=== PATIENT | male | born 1965 | race Caucasian/White ===

== ENCOUNTER → 2021-06-14 | Outpatient (CLI) | payer SELFPAY ==
--- NOTE | 2021-06-17 18:25 | PE ---
EXAMINATION TYPE: PET CT fusion skull to thigh DATE OF EXAM: 06/16/2021 CLINICAL HISTORY: 56-year-old male R91.1, initial staging right-sided solitary pulmonary nodule. TECHNIQUE: Following the intravenous administration of 11.8 mCi of F-18 FDG, whole body images are performed from the skull base to the midthigh. Images are reviewed on the computer in the coronal, a xial, and sagittal planes. Reconstructed rotating images are created on independent workstation and reviewed on the computer. A localization and attenuation correction CT is performed in conjunction with the PET scan. Glucose level: 102 mg/dL Injection site: Right AC COMPARISON: Outside low-dose CT chest 06/06/2021. FINDINGS: PET: There is focal intense uptake localized to the anterior aspect of the tongue measuring 2.3 cm wide, m ax SUV 8.5. Otherwise, physiologic FDG uptake within the neck. There is an irregular, spiculated, thick-walled cavitary mass involving the posterior right upper lob e measuring 3.8 cm wide and 3.9 cm craniocaudal. Borderline moderate uptake, Max SUV 3.0. Adjacent 1.0 cm satellite nodule along the inferior peripheral margin, axial image 81 also within the posterior right upper lobe is suspicious. Otherwise, physiologic FDG uptake within the chest. Average liver SUV 1.9. 8 mm hypodensity anterior mid hepatic dome shows no discrete FDG uptake, likely a small cyst. Otherwise, physiologic FDG uptake within the abdomen and pelvis. ATTENUATION CORRECTION CT: Moderate mucosal thickening bilateral maxillary sinuses. The orotracheal column is clear. No cervical lymphadenopathy. Heart normal size with trace anterior pericardial fluid. Conventional arch vessel branching anatomy. No thoracic lymphadenopathy by CT size criteria. Advanced centrilobular emphysema. Cavitary mass post erior right upper lobe as mentioned above along with adjacent 1 cm satellite nodule. No consolidation . Dependent atelectasis especially posterior left base. No pleural effusion. Nonobstructive 3 mm left renal calculus. No dilated small bowel, free fluid, or free air. No mesenter ic or retroperitoneal lymphadenopathy seen. Moderate stool burden. No pericolonic inflammatory change . Moderate atherosclerotic calcifications infrarenal abdominal aorta and iliac arteries. Scattered prostatic calcifications. Prostate gland mildly enlarged at 4.2 cm wide. Prominent circumfe rential bladder wall thickening may in part be due to nondistention. No abnormal fluid collection see n in the pelvis. Bones: Bilateral L5 pars defects with grade 2 anterolisthesis at L5-S1 with associated severe dissect ion change. S-shaped scoliosis. Advanced degenerative disc disease throughout the lumbar spine. All c ervical spondylosis. IMPRESSION: 1. COPD with advanced emphysema. The irregular, 3.8 cm cavitary mass in the posterior right upper lob e shows borderline moderate hypermetabolism. In the absence of signs/symptoms of atypical fungal/myco bacterial infections, this is highly suspicious for a primary neoplasm. A suspicious 1 cm satellite n odule is also noted along the inferior peripheral margin also located in the posterior right upper lo be. 2. Intense hypermetabolism localizing to the anterior aspect of the tongue. Etiology is unclear. Dire ct visualization to exclude neoplasm within the oral cavity here. 3. Otherwise, no specific findings of metastatic disease. 4. Prominent circumferential bladder wall thickening may in part be due to nondistention. Chronic freddie dder wall hypertrophy and cystitis are other considerations. Incidental 3 mm nonobstructive left marilee l calculus. 5. Degenerative S-shaped scoliosis. Bilateral L5 pars defects with grade 2 anterolisthesis at L5-S1.
== END | disposition home or self-care (01) ==
LOC: RADPETMAIN 11:43
PROVIDERS: ATTEND Nurse Practitioner Family
DX: J43.9 Emphysema, unspecified (principal); R91.8 Other nonspecific abnormal finding of lung field; N32.89 Other specified disorders of bladder; N20.0 Calculus of kidney
CPT/HCPCS: 78815; A9552

== ENCOUNTER → 2021-10-07 | Outpatient (CLI) | payer MEDICARE, OTHER ==
--- NOTE | 2021-10-07 17:21 | CT ---
EXAMINATION TYPE: CT chest w con DATE OF EXAM: 10/07/2021 COMPARISON: PET/CT 06/14/2021 HISTORY: malignant neoplasm of lung CT DLP: 1347 mGycm, Automated exposure control for dose reduction was used. CONTRAST: Performed injected with 100 mL of Isovue 300. TECHNIQUE: Axial images were obtained at 5 mm thick sections. Reconstructed images are reviewed on [employer] computer in the coronal plane. FINDINGS: Portion of the thyroid visualized is normal. There is an irregular consolidation in the posterior lateral right upper lobe measuring 7 x 3 cm. Thi s is enlarged from comparison. Previous cavitations are not identified. More extensive infiltrate ext ends anterior to the lateral portion of the chest. An enlarged pretracheal lymph node is present measuring 1.3 cm. Series 3 image 32. Right hilar adenop athy is present measuring 1.4 cm. Series 3 image 35. The ascending aorta diameter at the level of the main pulmonary artery is 3.0 cm. The main pulmonary artery diameter at the bifurcation is 2.[address] sections are obtained through the upper abdomen. Abdomen is essentially unremarkable. IMPRESSIONS: 1. Large irregular mass at the patient's prior cavitary lesion suspicious for progression of neoplasm . 2. Enlarged mediastinal pretracheal lymph node, this is an interval change
== END | disposition home or self-care (01) ==
LOC: RADCTMAIN 13:37
PROVIDERS: ATTEND Radiology Radiation Oncology
DX: C34.90 Malignant neoplasm of unspecified part of unspecified bronchus or lung (principal)
CPT/HCPCS: 71260; Q9967

== ENCOUNTER → 2021-12-13 | Outpatient (CLI) | payer MEDICARE, OTHER ==
[2021-12-13 10:09] LABS: African American GFR (CKD) >90 (>60 ml/min/1.73 sqM); Blood Urea Nitrogen 20 mg/dL (9-20); Non-African American GFR(CKD) >90 (>60 ml/min/1.73 sqM)
--- NOTE | 2021-12-13 20:02 | CT ---
EXAMINATION TYPE: CT chest wo/w con CT DLP: 381.6 mGycm, Automated exposure control for dose reduction was used. DATE OF EXAM: 12/13/2021 11:28 AM COMPARISON: Chest radiograph from 11/26/2021 Multiple CTs of the chest with most recent on 10/07/2021 . There are medicine PET scan 06/14/2021 CLINICAL INDICATION:Male, 56 years old with history of C34.11 Malignant neoplasm of upper lobe, right . TECHNIQUE: Multiple axial images were obtained through the chest with and without IV contrast. A tota l of 100 cc of Isovue-300 was administered. FINDINGS: LUNGS/ PLEURA: Interval increase in size of anterior lesion with thick peripheral dodson in the right upper lung measuring 8.5 x 6.2 x 7.8 cm. Previously this was all consolidation measuring 6.2 x 3.0 cm . There is large severe centrilobular emphysema with bulla and blebs within the lung apices. AIRWAY: Patent and unremarkable. HEART: Size within normal limits. MEDIASTINUM: Right low paratracheal lymph node measures similarly at 12 mm in short axis. VASCULATURE: Aortic sinus measures up to 42 mm. Scattered atherosclerotic disease seen throughout the arterial vasculature. MUSCULOSKELETAL: No acute osseous abnormalities. There is dextroscoliosis of the lower thoracic spine . Multilevel degenerative disc disease changes are seen throughout the spine. SOFT TISSUES/LYMPH NODES: Unremarkable. LOWER NECK: No significant findings. UPPER ABDOMEN: Stable right hepatic lobe A millimeters cyst. There is a left nonobstructing renal radames culus measuring 3 mm. The low bilateral too small to characterize probable renal cysts. IMPRESSION: 1. Interval increase in size of right upper lobe lesion now with larger cavitation measuring up to 8. 5 cm with peripheral thick dodson. 2. Stable right low paratracheal lymph node measuring 12 mm in short axis. 3. Moderate to severe emphysema changes with apical bulla and blebs. 4. Enlarged Aortic sinus with dilation up to 42 mm. 5. Nonobstructing left renal 3 mm calculus.
== END | disposition home or self-care (01) ==
LOC: RADCTMAIN 09:22
PROVIDERS: ATTEND Radiology Radiation Oncology
DX: C34.11 Malignant neoplasm of upper lobe, right bronchus or lung (principal); J44.9 Chronic obstructive pulmonary disease, unspecified
CPT/HCPCS: 82565; 84520; 71270; 36415; Q9967

== ENCOUNTER → 2022-01-17 | Outpatient (CLI) | payer MEDICARE, OTHER ==
--- NOTE | 2022-01-21 13:50 | PE ---
Nuclear medicine PET/CT HISTORY: C 34.11, lung cancer on the right, subsequent Patient received 10.2 mCi F-18 FDG intravenously and delayed scanning was performed from the skull ba se to the mid thighs. A localization and attenuation correction CT scan was performed. Correlation to prior nuclear medicine PET/CT 06/14/2021, CT chest 12/13/2021 Average mediastinal background activity 1.4 SUV, liver SUV 2 Chest and neck: The abnormal soft tissue in the right upper lobe is again noted which has increased i n size as compared to prior PET/CT, there is associated hypermetabolic uptake, SUV is 1.3. There is n o mediastinal, axillary, or hilar adenopathy, no cervical or supraclavicular adenopathy. Inflammatory changes present bilateral maxillary sinuses, uptake along the tongue is possibly physiologic. Extens mir emphysematous changes are again noted within the lungs. Abnormal attenuation at the left lung bas e developed in the interval, there are patchy areas of increased density not seen on priors, no pleur al or pericardial effusion or additional hypermetabolic uptake. ABDOMEN: There is no adrenal mass or liver mass. No suspicious uptake. Atheromatous changes present w ithin the aorta. Prostate calcifications are extensive. Degenerative disc changes, spondylolysis and spondylolisthesis suspected in the lower lumbar spine, t here is associated facet arthropathy, no suspicious uptake. IMPRESSION: Findings consistent with patient's history of bronchogenic carcinoma, additional findings above
== END | disposition home or self-care (01) ==
LOC: RADPETMAIN 10:30
PROVIDERS: ATTEND Radiology Radiation Oncology
DX: C34.11 Malignant neoplasm of upper lobe, right bronchus or lung (principal); J43.9 Emphysema, unspecified
CPT/HCPCS: 78815; A9552

== ENCOUNTER 2022-02-10 09:09 | Day surgery (SDC) | payer MEDICARE, OTHER ==
[~2022-02-10 09:09] MED LIST: ALPRAZolam 0.5 MG TAB PO PRN; HYDROmorphone 0.5 MG/0.5 ML SYRINGE IVP PRN
[2022-02-10 09:59] LABS: Mean Platelet Volume 6.7; Platelet Count 608 k/uL (150-450)
[2022-02-10 10:08] VITALS: TEMP 97.9
[2022-02-10 10:13] LABS: INR 0.9 (<1.2); Prothrombin Time 9.8 sec (9.0-12.0)
[2022-02-10 10:14] LABS: Partial Thromboplastin Time 26.5 sec (22.0-30.0)
--- NOTE | 2022-02-10 11:11 | CT ---
EXAMINATION TYPE: CT biopsy lung RT DATE OF EXAM: 02/10/2022 COMPARISON: 01/17/2022 HISTORY: Post right lung biopsy CT DLP: 838 mGycm The procedure is discussed with the patient, the risks, complications, benefits and alternatives, wer e discussed and any questions were answered. Informed consent was obtained. The patient is placed p magdalena on the CT table, prepped and draped in the usual sterile fashion. Utilizing a 18-gauge core biopsy needle access into the right upper lobe mass was achieved with 2 pas ses performed. Pathology pending. All elements of maximal barrier and sterile technique were utilized. The patient remained stable thr oughout the procedure with no immediate postprocedural complication. IMPRESSION: 1. Successful CT guided core biopsy of a right upper lobe lung mass
--- NOTE | 2022-02-10 11:28 | XR ---
EXAMINATION TYPE: XR chest 1V portable DATE OF EXAM: 02/10/2022 Comparison: 12/24/2021 Clinical History: 48 year-old male post right upper lung mass biopsy Findings: The heart is normal size. Aorta and pulmonary vasculature within normal limits. Dextroconvexed scolio sis. Hyperinflation. Cavitary mass right apex redemonstrated. No appreciable pneumothorax. No new con solidation or pleural effusion. Impression: COPD with known cavitary right apical mass. No appreciable pneumothorax.
[2022-02-10 12:30] VITALS: RESP 16
[2022-02-10 14:00] VITALS: BP 115/78; PULSE 90
--- NOTE | 2022-02-10 14:20 | XR ---
EXAMINATION TYPE: XR chest 1V portable DATE OF EXAM: 02/10/2022 Comparison: Earlier today Clinical History: 56-year-old male post right upper lung mass biopsy, second chest x-ray Findings: Heart normal size. Aorta and pulmonary vasculature within normal limits. Some increased hazy density at the right lower lung probably atelectasis. Hyperinflation. Cavitary mass at the right apex redemon strated. No appreciable pneumothorax. No pleural effusion. Impression: Known right apical cavitary mass. No appreciable pneumothorax.
== END 2022-02-10 14:07 | disposition home or self-care (01) ==
LOC: RADPROMAIN 09:09
PROVIDERS: ATTEND Radiology Radiation Oncology
DX: J85.0 Gangrene and necrosis of lung (principal); J44.9 Chronic obstructive pulmonary disease, unspecified
CPT/HCPCS: 32408; 36415; 71045; 77012; 85049; 85610; 85730; 88305

== ENCOUNTER → 2022-03-17 | Outpatient (CLI) | payer MEDICARE, OTHER ==
[2022-03-17 12:57] LABS: African American GFR (CKD) >90 (>60 ml/min/1.73 sqM); Blood Urea Nitrogen 13 mg/dL (9-20); Non-African American GFR(CKD) >90 (>60 ml/min/1.73 sqM)
--- NOTE | 2022-03-17 14:08 | CT ---
EXAMINATION TYPE: CT chest wo/w con DATE OF EXAM: 03/17/2022 COMPARISON: PET/CT 01/17/[address] chest 12/13/2021 HISTORY: Malignant neoplasm of upper lobe. CT DLP: 322.4 mGycm Automated exposure control for dose reduction was used. CONTRAST: CT scan of the chest is performed without and with IV Contrast, patient injected with 100 mL of Isovu e M300. FINDINGS: LUNGS: Soft tissue mass with cavitation right upper lobe appears to be essentially unchanged. Mass is difficult to measure however estimated measurement is 10.1 x 3.4 x 2.4 cm. The remainder of the lung s are clear and free of additional mass or nodule. Moderate emphysematous change noted. No pleural ef fusion is seen. No evidence for hilar or mediastinal adenopathy at this time. MEDIASTINUM: There are no greater than 1 cm hilar or mediastinal lymph nodes. No pericardial effusi on is seen. Thoracic aorta is of normal caliber. The heart is not enlarged. UPPER ABDOMEN: No significant abnormality appreciated. OTHER: No additional significant abnormality is seen. IMPRESSION: Stable cavitary right upper lobe soft tissue mass compatible with bronchogenic carcinoma.
== END | disposition home or self-care (01) ==
LOC: RADCTMAIN 12:08
PROVIDERS: ATTEND Radiology Radiation Oncology
DX: C34.11 Malignant neoplasm of upper lobe, right bronchus or lung (principal)
CPT/HCPCS: 82565; 84520; 71270; 36415; Q9967

== ENCOUNTER → 2022-12-08 | Outpatient (CLI) | payer MEDICARE, OTHER ==
--- NOTE | 2022-12-08 17:14 | CT ---
EXAMINATION TYPE: CT chest w con DATE OF EXAM: 12/08/2022 COMPARISON: 07/17/2022 HISTORY: Follow up for right upper lobe lung cancer. CT DLP: 186.9 mGycm, Automated exposure control for dose reduction was used. CONTRAST: Performed injected with 70ml mL of Isovue 300. TECHNIQUE: Axial images were obtained at 5 mm thick sections. Reconstructed images are reviewed on [employer] computer in the coronal plane. FINDINGS: Portion of the thyroid visualized is normal. Extensive advanced emphysematous changes are present. There is a 1.6 x 0.5 cm density within the post erior right apex. This is new from comparison. There is persistent thickening cavitation in the posterior right upper lung field. There are multiple small irregular new densities within the right anterior lung field averaging approximately 4 mm each . The largest area along the anterior right lung margin measures 1.0 cm. Series 4 image 38. There is a 1.3 cm pretracheal lymph node present. Right hilar adenopathy is likely present measuring 1.2 cm. Some soft tissue thickening along the superior mediastinal border measures 1.4 cm. The ascending aorta diameter at the level of the main pulmonary artery is 2.7 cm. The main pulmonary artery diameter at the bifurcation is 3.[address] sections are obtained through the upper abdomen. Abdomen is essentially unremarkable. PET CT could further evaluate these findings. IMPRESSIONS: 1. Large relatively stable appearing cavitary lesion posterior right apex. 2. Multiple new small heterogenous densities right mid lung suspicious for metastatic disease. 3. Enlarged pretracheal lymphadenopathy which appears increased in size from prior exam suspicious fo r metastatic disease.
== END | disposition home or self-care (01) ==
LOC: RADCTMAIN 11:49
PROVIDERS: ATTEND Radiology Radiation Oncology
DX: C34.11 Malignant neoplasm of upper lobe, right bronchus or lung (principal); J98.4 Other disorders of lung; J44.9 Chronic obstructive pulmonary disease, unspecified; R59.0 Localized enlarged lymph nodes
CPT/HCPCS: 71260; Q9967

== ENCOUNTER → 2023-03-30 | Outpatient (CLI) | payer MEDICARE, OTHER ==
[2023-03-30 20:50] LABS: ALT 24 U/L (10-49); AST 22 U/L (14-35); African American GFR (CKD) 123.7 (60.0-200.0); Albumin 4.1 g/dL (3.8-4.9); Albumin/Globulin Ratio 1.35 (1.60-3.17); Alkaline Phosphatase 123 U/L (41-126); Blood Urea Nitrogen 14.3 mg/dL (9.0-27.0); Calcium 9.5 mg/dL (8.7-10.3); Carbon Dioxide 26.8 mmol/L (20.0-27.5); Chloride 104 mmol/L (96-109); Glucose 91 mg/dL (70-110); Non-African American GFR(CKD) 106.7 (60.0-200.0); Potassium 4.6 mmol/L (3.5-5.5); Sodium 139 mmol/L (135-145); Total Bilirubin <0.15 mg/dL (0.30-1.20); Total Protein 7.1 g/dL (6.2-8.2)
== END | disposition home or self-care (01) ==
LOC: LABWHC1 12:05
PROVIDERS: ATTEND Internal Medicine Infectious Disease
DX: A31.2 Disseminated mycobacterium avium-intracellulare complex (DMAC) (principal)
CPT/HCPCS: 36415; 80053

== ENCOUNTER → 2023-04-15 | Outpatient (CLI) | payer MEDICARE, OTHER ==
[2023-04-15 16:00] LABS: African American GFR (CKD) 132.1 (60.0-200.0); Albumin 3.6 g/dL (3.8-4.9); Albumin/Globulin Ratio 1.03 (1.60-3.17); Anion Gap 13.7 mmol/L (10.00-18.00); BUN/Creat Ratio 22.87 Ratio (12.00-20.00); Blood Urea Nitrogen 12.6 mg/dL (9.0-27.0); Calcium 9.1 mg/dL (8.7-10.3); Carbon Dioxide 23.9 mmol/L (20.0-27.5); Globulin 3.5 g/dL (1.6-3.3); Potassium 4.8 mmol/L (3.5-5.5); Total Bilirubin 0.2 mg/dL (0.30-1.20)
== END | disposition home or self-care (01) ==
LOC: LABWHC1 11:50
PROVIDERS: ATTEND Internal Medicine Infectious Disease
DX: A31.2 Disseminated mycobacterium avium-intracellulare complex (DMAC) (principal)
CPT/HCPCS: 36415; 80053; 85652; 87116; 87206

== ENCOUNTER → 2024-02-26 | Outpatient (CLI) | payer MEDICARE, OTHER ==
[2024-02-26 12:43] LABS: African American GFR (CKD) >90 (>60 ml/min/1.73 sqM); Blood Urea Nitrogen 15 mg/dL (9-20); Non-African American GFR(CKD) >90 (>60 ml/min/1.73 sqM)
--- NOTE | 2024-02-26 15:41 | CT ---
EXAMINATION TYPE: CT chest w con DATE OF EXAM: 02/26/2024 COMPARISON: 12/08/2022, 01/23/2023 HISTORY: pneumonia CT DLP: 448 mGycm, Automated exposure control for dose reduction was used. CONTRAST: Performed injected with 100 mL of Isovue 300. TECHNIQUE: Axial images were obtained at 5 mm thick sections. Reconstructed images are reviewed on [employer] computer in the coronal plane. FINDINGS: Portion of the thyroid visualized is normal. Advanced emphysematous changes are within the lung apices greater on the right. There is a area of thickening along the posterior medial right upper lung field, present previously. This appears smaller than comparison. Previous nodules not identified on the current examination. No enlarged mediastinal or hilar adenopathy is evident. Previous enlarged lymphadenopathy is resolv ed The ascending aorta diameter at the level of the main pulmonary artery is 2.9 cm. The main pulmon sheng artery diameter at the bifurcation is 2.[address] sections are obtained through the upper abdomen. Small hepatic cysts on the anterior right upper lobe of the liver. Small cortical renal cysts posterior lateral right upper pole kidney IMPRESSION: 1. Resolving findings from prior examination. 2. No suspicious new findings to suggest new metastatic disease. 3. Continued short-term follow-up recommended. 4. Advanced emphysematous changes
== END | disposition home or self-care (01) ==
LOC: RADCTMAIN 12:02
PROVIDERS: ATTEND Internal Medicine Infectious Disease
DX: J43.9 Emphysema, unspecified (principal); J18.9 Pneumonia, unspecified organism
CPT/HCPCS: 82565; 84520; 71260; 36415; Q9967

== ENCOUNTER 2025-01-01 05:38 | Observation (INO) | payer MEDICARE, OTHER ==
[2025-01-01] MEDS ORDERED: NALOXONE 0.4 MG/ML 1 ML VIAL IVP PRN (06:37)
[2025-01-01] MEDS ORDERED: ACETAMINOPHEN TAB 325 MG TAB PO PRN (06:37)
--- NOTE | 2025-01-01 06:37 | ED ---
General Adult HPI - General Chief complaint: Shortness of Breath Stated complaint: COPD Time Seen by Provider: 01/01/25 05:57 Source: patient, EMS, RN notes reviewed Mode of arrival: EMS Limitations: no limitations - History of Present Illness Initial comments: 59-year-old male presents emergency department from [facility] as a transfer COPD exacerbation. Patient states he started getting sick on he states symptoms are progressively worsening. Patient states he had pneumonia last year and was admitted for several days. Patient states he checked prior lung cancer they are concerned about reoccurrence. Patient states that he does see Dr. Sylvester. Patient reported some fever chills body aches. Denies any abdominal pain no lower extremity swelling. States he was given breathing treatments, steroids he states he was doing treatments every 2 hours at home. - Related Data Home Medications Medication Instructions Recorded Confirmed Albuterol Sulfate [Proair Hfa] 1 - 2 puff INHALATION Q6HR PRN 01/31/22 01/23/23 Aspirin [Adult Low Dose Aspirin EC] 81 mg PO DAILY 01/31/22 01/23/23 Fluticasone Propion/Salmeterol 2 puff INHALATION BID 01/31/22 01/23/23 [Advair Hfa 115-21 Mcg Inhaler] Ipratropium-Albuterol Nebulize 3 ml INHALATION Q6HR 01/31/22 01/23/23 [Duoneb 0.5 mg-3 mg/3 ml Soln] Ipratropium/Albuter 20-100Mcg 1 puff INHALATION Q4-6H 01/31/22 01/23/23 [Combivent Respimat 20-100Mcg Inhaler] predniSONE 5 mg PO DAILY 01/31/22 01/23/23 Allergies Allergy/AdvReac Type Severity Reaction Status Date / Time No Known Allergies Allergy Verified 01/23/23 11:53 Review of Systems ROS Statement: Those systems with pertinent positive or pertinent negative responses have been documented in the HPI. ROS Other: All systems not noted in ROS Statement are negative. Past Medical History Past Medical History: Cancer, COPD Additional Past Medical History / Comment(s): right upper lobe lung mass. end stage COPD History of Any Multi-Drug Resistant Organisms: None Reported Past Surgical History: Orthopedic Surgery, Tonsillectomy Additional Past Surgical History / Comment(s): prolasped colon repair Past Anesthesia/Blood Transfusion Reactions: No Reported Reaction Past Psychological History: Anxiety Smoking Status: Current some day smoker Past Alcohol Use History: Occasional Past Drug Use History: Marijuana - Past Family History Father Family Medical History: Cancer Additional Family Medical History / Comment(s): lung cancer General Exam Limitations: no limitations General appearance: alert, in no apparent distress Head exam: Present: atraumatic, normocephalic, normal inspection Eye exam: Present: normal appearance, PERRL, EOMI. Absent: scleral icterus, conjunctival injection, periorbital swelling ENT exam: Present: normal exam, normal oropharynx, mucous membranes moist Neck exam: Present: normal inspection, full ROM. Absent: tenderness, men ingismus, lymphadenopathy Respiratory exam: Present: wheezes. Absent: respiratory distress, rales, rhonchi, stridor Cardiovascular Exam: Present: normal rhythm, tachycardia, normal heart sounds. Absent: systolic murmur, diastolic murmur, rubs, gallop, clicks GI/Abdominal exam: Present: soft, normal bowel sounds. Absent: distended, tenderness, guarding, rebound, rigid Course Vital Signs 01/01/25 05:42 Temperature 98.3 F Pulse Rate 101 H Respiratory 21 Rate Blood Pressure 121/82 O2 Sat by Pulse 95 Oximetry EKG Findings - EKG Comments: EKG Findings:: EKG performed at 5: 47 sinus rhythm rate 93 CO 144, QRS 105 QT/QTc 359/409 - EKG Results: EKG: interpreted by MARIO Medical Decision Making - Medical Decision Making Was pt. sent in by a medical professional or institution (, PA, CONTRACT SHELTERED WORKSHOP SUPERVISOR, urgent care, hospital, or [place] health care facility...) When possible be specific @ -[facility] Did you speak to anyone other than the patient for history (EMS, parent, family, police, friend...)? What history was obtained from this source @ -No Did you review nursing and triage notes (agree or disagree)? Why? @ -I reviewed and agree with nursing and triage notes Were old charts reviewed (outside hosp., previous admission, EMS record, old EKG, old radiological studies, urgent care reports/EKG's, [place] health care facility records)? Report findings @Reviewed all [facility] records Differential Diagnosis (chest pain, altered mental status, abdominal pain women, abdominal pain men, vaginal bleeding, weakness, fever, dyspnea, syncope, headache, dizziness, GI bleed, back pain, seizure, CVA, palpatations, mental health, musculoskeletal)? @ -Differential Dyspnea: Coronary syndrome, arrhythmia, tamponade, asthma, COPD, pulmonary embolism, pneumonia, pneumothorax, pulmonary effusion, anaphylaxis, diabetic ketoacidosis, flailed chest, pulmonary contusion, diaphragmatic rupture, anemia, neuromuscular, this is not meant to be an all-inclusive list. EKG interpreted by me (3pts min.). @ -As above X-rays interpreted by me (1pt min.). @ -None done CT interpreted by me (1pt min.). @ -None done U/S interpreted by me (1pt. min.). @ -None done What testing was considered but not performed or refused? (CT, X-rays, U/S, labs)? Why? @ -None What meds were considered but not given or refused? Why? @ -None Did you discuss the management of the patient with other professionals (professionals i.e. , PA, CONTRACT SHELTERED WORKSHOP SUPERVISOR, lab, RT, psych nurse, pediatric social worker, drafter chief design, teacher, adult parole officer, case management assistant)? Give summary @ -Sound physician for admission Was smoking cessation discussed for >3mins.? @ -No Was critical care preformed (if so, how long)? @ -No Were there social determinants of health that impacted care today? How? (Homelessness, low income, unemployed, alcoholism, drug addiction, transportation, low edu. Level, literacy, decrease access to med. care, senior living, rehab)? @ -No Was there de-escalation of care discussed even if they declined (Discuss DNR or withdrawal of care, Hospice)? DNR status @ -No What co-morbidities impacted this encounter? (DM, HTN, Smoking, COPD, CAD, Cancer, CVA, ARF, Chemo, Hep., AIDS, mental health diagnosis, sleep apnea, morbid obesity)? @ -None Was patient admitted / discharged? Hospital course, mention meds given and route, prescriptions, significant lab abnormalities, going to OR and other pert inent info. @ -Admitted patient was a transfer from within the hospital for COPD exacerbation. Patient with consult to pulmonary, continue steroids, breathing treatments Undiagnosed new problem with uncertain prognosis? @ -No Drug Therapy requiring intensive monitoring for toxicity (Heparin, Nitro, Insulin, Cardizem)? @ -No Were any procedures done? @ -No Diagnosis/symptom? @ -COPD exacerbation Acute, or Chronic, or Acute on Chronic? @ -Acute Uncomplicated (without systemic symptoms) or Complicated (systemic symptoms)? @ -Complicated Side effects of treatment? @ -No Exacerbation, Progression, or Severe Exacerbation? @ -Exacerbation Poses a threat to life or bodily function? How? (Chest pain, [place], [place], pneumonia, PE, COPD, DKA, ARF, appy, cholecystitis, CVA, Diverticulitis, Homicidal, [place], threat to staff... and all critical care pts) @ -Yes COPD risk to pulmonary function Disposition Clinical Impression: COPD exacerbation Disposition: ADMITTED IP TO THIS HOSP Condition: Poor Referrals: None,Stated [Primary Care Provider] - 1-2 days Time of Disposition: 06:37
--- NOTE | 2025-01-01 07:23 | XR ---
Chest, 2 view. HISTORY: Shortness of breath and COPD COMPARISON: 05/19/2024 TECHNIQUE: PA and lateral views the chest are obtained. FINDINGS: There is hyperinflation of the lungs and flattening the diaphragms consistent with COPD. There are sc attered mild chronic interstitial changes. There is no airspace consolidation. There is no pleural effusion or pneumothorax. The heart is normal in size. The osseous structures are intact. IMPRESSION: 1. Marked COPD 2. No acute cardiopulmonary process. [facility], Workstation: JAM 01/01/2025 7:21 AM
[2025-01-01] MEDS: LORazepam 2 MG/ML INJ IV STA (07:33)
[2025-01-01] MEDS ORDERED: DOCUSATE 100 MG CAP PO PRN (08:32)
[2025-01-01] MEDS ORDERED: MELATONIN 3 MG TABLET PO PRN (08:32)
[2025-01-01] MEDS ORDERED: ONDANSETRON 4 MG/2 ML VIAL IVP PRN (08:32)
[2025-01-01] MEDS: IPRATROPIUM-ALBUTEROL 3 ML NEB INHALATION SCH (08:43)
[2025-01-01] MEDS: ENOXAPARIN 40 MG/0.4 ML SYRINGE SQ SCH (09:23)
[2025-01-01] MEDS: ALPRAZolam 0.5 MG TAB PO PRN (09:23)
[2025-01-01] MEDS: ASPIRIN 81 MG PO SCH (09:23)
[2025-01-01] MEDS: DOXYCYCLINE 100 MG CAP PO SCH (09:23)
[2025-01-01 12:23] LABS: Glucose,Whole Blood 147 mg/dL (70-110)
--- NOTE | 2025-01-01 12:26 | P.CNPUL ---
History of Present Illness Consult date: 01/01/25 Requesting physician: Ho Barrios Reason for consult: dyspnea, COPD Chief complaint: Shortness of breath History of present illness: This is an anxious 59-year-old male patient with a known history of severe chronic obstructive pulmonary disease, chronic and ongoing tobacco dependence, marijuana use, previous MAC infection. He presented here to the emergency room early this morning as a transfer for an outside hospital with complaints of increasing shortness of breath, cough and congestion. He had been sick for 2 to 3 days prior. No fever or chills. No productive cough. No sick contacts. Chest x-ray revealed no acute pulmonary process. There is evidence of significant COPD. No labs done here yet. He is seen today in consultation on the regular medical floor. He is sitting up in bed. He is anxious. He is alert and oriented. He is maintaining O2 saturations in the 90s on 3 L/min per nasal cannula. He is afebrile. Hemodynamically stable. Review of Systems REVIEW OF SYSTEMS: CONSTITUTIONAL: Denies any recent significant weight loss or weight gain. EYES: Denies change in vision. EARS, NOSE, MOUTH, THROAT: Denies headaches, denies sore throat. CARDIOVASCULAR: Denies chest pain, palpitations or syncopal episodes. RESPIRATORY: Positive for shortness of breath, cough, congestion no hemoptysis. GASTROINTESTINAL: Denies change in appetite, denies abdominal pain GENITOURINARY: Denies hematuria, denies infections. MUSKULOSKELETAL: Denies pain, denies swelling. INTEGUMENTARY: Denies rash, denies eczema. NEUROLOGICAL: Denies recent memory loss, no recent seizure activity. PSYCHIATRIC: Denies anxiety, denies depression. HEMATOLOGIC/LYMPHATIC: Denies anemia, denies enlarged lymph nodes. Past Medical History Past Medical History: Cancer, COPD Additional Past Medical History / Comment(s): right upper lobe lung mass. 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 Smoking Status: Current some day smoker Past Alcohol Use History: Occasional Past Drug Use History: Marijuana Additional Drug Use History / Comment(s): OCCASIONAL EDIBLE FOR ANXIETY - Past Family History Father Family Medical History: Cancer Additional Family Medical History / Comment(s): lung cancer Medications and Allergies Home Medications Medication Instructions Recorded Confirmed Type Albuterol Sulfate [Proair Hfa] 2 puff INHALATION RT-Q4H PRN 01/31/22 01/01/25 History Aspirin [Adult Low Dose Aspirin EC] 81 mg PO DAILY 01/31/22 01/01/25 History Ipratropium-Albuterol Nebulize 3 ml INHALATION RT-QID PRN 01/31/22 01/01/25 History [Duoneb 0.5 mg-3 mg/3 ml Soln] predniSONE 5 mg PO DAILY 01/31/22 01/01/25 History ALPRAZolam [Xanax] 0.5 mg PO BID PRN 01/01/25 01/01/25 History Cyclobenzaprine [Flexeril] 10 mg PO BID PRN 01/01/25 01/01/25 History Fluticasone Propion/Salmeterol 2 puff INHALATION RT-BID 01/01/25 01/01/25 History [Advair Hfa 230-21 Mcg Inhaler] Hydroxychloroquine Sulfate 200 mg PO DAILY 01/01/25 01/01/25 History traMADol HCL 50 mg PO Q6H PRN 01/01/25 01/01/25 History Allergies Allergy/AdvReac Type Severity Reaction Status Date / Time No Known Allergies Allergy Verified 01/01/25 10:34 Physical Exam Vitals: Vital Signs Temp Pulse Pulse Resp BP BP Pulse Ox 01/01/25 08:58 90 01/01/25 08:44 88 01/01/25 08:26 98.1 F 90 18 116/74 95 01/01/25 08:00 90 18 01/01/25 07:15 98.2 F 99 19 111/67 95 01/01/25 06:00 19 01/01/25 05:42 98.3 F 101 H 21 121/82 95 Intake and Output 12/31/24 01/01/25 01/01/25 22:59 06:59 14:59 Other: Voiding Method Urinal Weight 72.575 kg 72.575 kg GENERAL EXAM: Alert, anxious, thin 59-year-old male, on 3 L nasal cannula, fairly comfortable in no apparent distress. HEAD: Normocephalic. EYES: Normal reaction of pupils, equal size. NOSE: Clear with pink turbinates. THROAT: No erythema or exudates. NECK: No masses, no JVD. CHEST: No chest wall deformity. LUNGS: Equal air entry with bilateral wheeze, diminished. CVS: S1 and S2 normal with no audible murmur, regular rhythm. ABDOMEN: No hepatosplenomegaly, normal bowel sounds, no guarding or rigidity. SPINE: No scoliosis or deformity SKIN: No rashes CENTRAL NERVOUS SYSTEM: No focal deficits, tone is normal in all 4 extremities. EXTREMITIES: There is no peripheral edema. No clubbing, no cyanosis. Peripheral pulses are intact. Results - Diagnostic Findings Chest x-ray: image reviewed Assessment and Plan Assessment: Acute hypoxemic respiratory failure secondary to an acute exacerbation of chronic obstructive pulmonary disease Chronic and ongoing tobacco dependence Marijuana use History of previous MAC infection Anxiety Plan: The patient was seen and evaluated Chest x-ray and medications reviewed Initiated on DuoNeb inhalations, Symbicort Initiated on Solu-Medrol Doxycycline as empiric antibiotics Xanax for anxiety as needed Lovenox for DVT prophylaxis We will continue to follow and make further recommendations based on his clinical status I have personally seen and examined the patient, performed the documentation and the assessment and plan as written. Number of minutes spent on the visit: 20 Dictation was produced using [employer]orus dictation software. Please excuse any grammatical, word or spelling errors. Time with Patient: Greater than 30
[2025-01-01] MEDS: methylPREDNISolone SOD SUCCI 125 MG/2 ML VIAL IV SCH (13:29)
--- NOTE | 2025-01-01 15:14 | P.HPIM ---
History of Present Illness H&P Date: 01/01/25 59 year old M with PMH of COPD with history of lung CA that has been progressively getting worse over the past 2 days. He is a transfer from [facility]. He reports cough productive of yellow-brown sputum. He also reports myalgias, chills and positional lightheadedness. Smokes 1/3 pack daily. He denies any headache, lower extremity edema, nausea or vomiting, fever, chest pain, palpitations, changes in urination or bowel habits. In the ED he underwent extensive evaluation. BP 121/82, HR 101, T 98.3F, RR 21, 95% on RA. General: non toxic, no distress, appears at stated age Derm: warm, dry Head: atraumatic, normocephalic, symmetric Eyes: EOMI, no lid lag, anicteric sclera Mouth: no lip lesion, mucus membranes moist Cardiovascular: S1S2 reg, no murmur Lungs: Expiratory wheezing bilateral, no rhonchi, no rales , no accessory muscle use Ext: no gross muscle atrophy, no edema, no contractures Neuro: no focal neuro deficits Psych: Alert, oriented, appropriate affect Based on my assessment of this patient, this patient meets a high complexity level of care. Acute hypoxic respiratory failure secondary to below Acute COPD exacerbation: Symbicort 2 INH BID. Doxycycline 100 mg PO BID. DuoNeb QID scheduled and PRN SOB/wheezing. SoluMedrol 60 mg IV Q6H. Telemetry monitoring. Supplemental O2 to maintain O2 sat > 92%. Pulmonary consult. Nicotine dependence CODE STATUS: FULL CODE DVT Prophylaxis: Lovenox SQ GI Prophylaxis: Protonix Designated medical POA if patient is not able to make medical decisions for themselves: . I have reviewed the following farm consultant notes: Pulmonary. I have reviewed the results of the following tests: As above. I have ordered the following tests: CBC and BMP and Mag in the AM. I have discussed the care of this patient with the following independent historian: I have independently interpreted the following test below: I have discussed the management of this patient with the following physician: Past Medical History Past Medical History: Cancer, COPD Additional Past Medical History / Comment(s): right upper lobe lung mass. 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 Smoking Status: Current some day smoker Past Alcohol Use History: Occasional Past Drug Use History: Marijuana Additional Drug Use History / Comment(s): OCCASIONAL EDIBLE FOR ANXIETY - Past Family History Father Family Medical History: Cancer Additional Family Medical History / Comment(s): lung cancer Medications and Allergies Home Medications Medication Instructions Recorded Confirmed Type Albuterol Sulfate [Proair Hfa] 2 puff INHALATION RT-Q4H PRN 01/31/22 01/01/25 History Aspirin [Adult Low Dose Aspirin EC] 81 mg PO DAILY 01/31/22 01/01/25 History Ipratropium-Albuterol Nebulize 3 ml INHALATION RT-QID PRN 01/31/22 01/01/25 History [Duoneb 0.5 mg-3 mg/3 ml Soln] predniSONE 5 mg PO DAILY 01/31/22 01/01/25 History ALPRAZolam [Xanax] 0.5 mg PO BID PRN 01/01/25 01/01/25 History Cyclobenzaprine [Flexeril] 10 mg PO BID PRN 01/01/25 01/01/25 History Fluticasone Propion/Salmeterol 2 puff INHALATION RT-BID 01/01/25 01/01/25 History [Advair Hfa 230-21 Mcg Inhaler] Hydroxychloroquine Sulfate 200 mg PO DAILY 01/01/25 01/01/25 History traMADol HCL 50 mg PO Q6H PRN 01/01/25 01/01/25 History Allergies Allergy/AdvReac Type Severity Reaction Status Date / Time No Known Allergies Allergy Verified 01/01/25 10:34 Physical Exam Vitals: Vital Signs Temp Pulse Pulse Resp BP BP Pulse Ox 01/01/25 08:58 90 01/01/25 08:44 88 01/01/25 08:26 98.1 F 90 18 116/74 95 01/01/25 08:00 90 18 01/01/25 07:15 98.2 F 99 19 111/67 95 01/01/25 06:00 19 01/01/25 05:42 98.3 F 101 H 21 121/82 95 Intake and Output 12/31/24 01/01/25 01/01/25 22:59 06:59 14:59 Other: Voiding Method Urinal Weight 72.575 kg 72.575 kg
[2025-01-01] MEDS: SYMBICORT 160-4.5 MCG INHALER INHALATION SCH (21:28)
[2025-01-02 08:40] LABS: Basophils # (A) 0.02 X 10*3/uL (0.00-0.10); Basophils % (A) 0.2 %; Eosinophils # (A) 0 X 10*3/uL (0.04-0.35); Eosinophils % (A) 0 %; HCT 42.1 % (39.6-50.0); HGB 13.8 g/dL (13.0-17.0); Lymphocytes # (A) 0.83 X 10*3/uL (0.90-5.00); Lymphocytes % (A) 8.3 %; MCHC 32.8 g/dL (32.0-37.0); MCV 94.6 FL (80.0-97.0); Mean Platelet Volume 9.5 FL (9.5-12.2); Monocytes # (A) 0.71 X 10*3/uL (0.20-1.00); Monocytes % (A) 7.1 %; NRBC Per 100 WBC 0 X 10*3/uL (0.00-0.01); Neutrophils # (A) 8.38 X 10*3/uL (1.80-7.70); Neutrophils % (A) 84.1 %; Platelet Count 315 X 10*3/uL (140-440); RBC 4.45 X 10*6/uL (4.40-5.60); RDW 13.1 % (11.5-14.5); WBC 9.97 X 10*3/uL (4.50-10.00)
[2025-01-02] MEDS: PANTOPRAZOLE 40 MG TABLET PO SCH (08:42)
[2025-01-02 08:49] LABS: Calcium 9.1 mg/dL (8.7-10.3); Carbon Dioxide 26.7 mmol/L (21.6-31.8); Chloride 98 mmol/L (96-109); Glucose 136 mg/dL (70-110); Magnesium 2.1 mg/dL (1.5-2.4); Potassium 4.6 mmol/L (3.5-5.5); Sodium 133 mmol/L (135-145)
[2025-01-02 12:37] LABS: Influenza A Not Detected (Not Detectd); Influenza B Not Detected (Not Detectd); RSV Not Detected (Not Detectd)
--- NOTE | 2025-01-02 13:13 | P.PN ---
Subjective Progress Note Date: 01/02/25 59 year old M with PMH of COPD with history of lung CA that has been progressively getting worse over the past 2 days. He is a transfer from [facility]. He reports cough productive of yellow-brown sputum. He also reports myalgias, chills and positional lightheadedness. Smokes 1/3 pack daily. He denie s any headache, lower extremity edema, nausea or vomiting, fever, chest pain, palpitations, changes in urination or bowel habits. In the ED he underwent extensive evaluation. BP 121/82, HR 101, T 98.3F, RR 21, 95% on RA. 01/02 Patient was seen and examined. Still feeling SOB. 97% on 3L NC. CBC and BMP significant for Na 133, BUN/Cr 34, glu 136. Mag 2.1. COVID, RSV, Flu neg. General: non toxic, no distress, appears at stated age Derm: warm, dry Head: atraumatic, normocephalic, symmetric Eyes: EOMI, no lid lag, anicteric sclera Mouth: no lip lesion, mucus membranes moist Cardiovascular: S1S2 tachy, no murmur Lungs: Expiratory wheezing bilateral, no rhonchi, no rales , no accessory muscle use Ext: no gross muscle atrophy, no edema, no contractures Neuro: no focal neuro deficits Psych: Alert, oriented, appropriate affect Based on my assessment of this patient, this patient meets a high complexity level of care. Acute hypoxic respiratory failure secondary to below Acute COPD exacerbation: Symbicort 2 INH BID. Doxycycline 100 mg PO BID. DuoNeb QID scheduled and PRN SOB/wheezing. SoluMedrol 60 mg IV Q6H. Telemetry monitoring. Supplemental O2 to maintain O2 sat > 92%. Pulmonary on board. Nicotine dependence Patient is pending clinical improvement. Continue above management. CODE STATUS: FULL CODE DVT Prophylaxis: Lovenox SQ GI Prophylaxis: Protonix Designated medical POA if patient is not able to make medical decisions for themselves: . I have reviewed the following farm consultant notes: Pulmonary. I have reviewed the results of the following tests: CBC, BMP, Mag. I have ordered the following tests: I have discussed the care of this patient with the following independent historian: RN. I have independently interpreted the following test below: I have discussed the management of this patient with the following physician: Objective - Vital Signs Vital signs: Vital Signs Temp 97.5 F L 01/02/25 07:51 Pulse 92 01/02/25 12:38 Resp 17 01/02/25 07:51 BP 93/62 01/02/25 07:51 Pulse Ox 97 01/02/25 08:35 FiO2 Intake & Output 01/01/25 01/02/25 01/02/25 18:59 06:59 18:59 Intake Total 1317 540 Balance 1317 540 Weight 72.575 kg Intake: Oral 1317 540 Other: Voiding Method Urinal Urinal # Voids 2 - Labs CBC & Chem 7: 01/02/25 05:06 01/02/25 05:06 Labs: Abnormal Lab Results - Last 24 Hours (Table) 01/02/25 01/02/25 Range/Units 05:06 05:06 Neutrophils # 8.38 H (1.80-7.70) X 10*3/uL Lymphocytes # 0.83 L (0.90-5.00) X 10*3/uL Eosinophils # 0 L (0.04-0.35) X 10*3/uL Sodium 133 L (135-145) mmol/L Creatinine 0.5 L (0.6-1.5) mg/dL BUN/Creatinine Ratio 34.00 H (12.00-20.00) Ratio Glucose 136 H (70-110) mg/dL
--- NOTE | 2025-01-02 14:07 | P.PN ---
Subjective Progress Note Date: 01/02/25 This is an anxious 59-year-old male patient with a known history of severe chronic obstructive pulmonary disease, chronic and ongoing tobacco dependence, marijuana use, previous MAC infection. He presented here to the emergency room early this morning as a transfer for an outside hospital with complaints of increasing shortness of breath, cough and congestion. He had been sick for 2 to 3 days prior. No fever or chills. No productive cough. No sick contacts. Chest x-ray revealed no acute pulmonary process. There is evidence of significant COPD. No labs done here yet. He is seen today in consultation on the regular medical floor. He is sitting up in bed. He is anxious. He is alert and oriented. He is maintaining O2 saturations in the 90s on 3 L/min per nasal cannula. He is afebrile. Hemodynamically stable. The patient is seen today January 02, 2025 in follow-up on the regular medical floor. He is currently sitting up at the bedside. Awake and alert in no acute distress. Less anxious today compared to yesterday. He is maintaining good O2 saturations in the 90s on 2 L/min per nasal cannula. White count 9.9. Hemoglobin 13.8. Platelets 315. Sodium 133. Potassium 4.6. Bicarb 27. BUN 17. Creatinine 0.5. Glucose 136. He is continued on DuoNeb inhalations, Symbicort, Solu-Medrol. Lovenox for DVT prophylaxis. Empiric antibiotics in the form of Vibramycin. Xanax as needed for anxiety. Protonix for GI prophylaxis. Objective - Vital Signs Vital signs: Vital Signs Temp 97.5 F L 01/02/25 07:51 Pulse 92 01/02/25 12:38 Resp 17 01/02/25 07:51 BP 93/62 01/02/25 07:51 Pulse Ox 97 01/02/25 08:35 FiO2 Intake & Output 01/01/25 01/02/25 01/02/25 18:59 06:59 18:59 Intake Total 1317 540 Balance 1317 540 Weight 72.575 kg Intake: Oral 1317 540 Other: Voiding Method Urinal Urinal # Voids 2 - Exam GENERAL EXAM: Alert, pleasant 59-year-old male, on 2 L nasal cannula, sitting up in bed, comfortable in no apparent distress. HEAD: Normocephalic. EYES: Normal reaction of pupils, equal size. NOSE: Clear with pink turbinates. THROAT: No erythema or exudates. NECK: No masses, no JVD. CHEST: No chest wall deformity. LUNGS: Equal air entry with bilateral end expiratory wheeze, diminished. CVS: S1 and S2 normal with no audible murmur, regular rhythm. ABDOMEN: No hepatosplenomegaly, normal bowel sounds, no guarding or rigidity. SPINE: No scoliosis or deformity SKIN: No rashes CENTRAL NERVOUS SYSTEM: No focal deficits, tone is normal in all 4 extremities. EXTREMITIES: There is no peripheral edema. No clubbing, no cyanosis. Peripheral pulses are intact. - Labs CBC & Chem 7: 01/02/25 05:06 01/02/25 05:06 Labs: Abnormal Lab Results - Last 24 Hours (Table) 01/02/25 01/02/25 Range/Units 05:06 05:06 Neutrophils # 8.38 H (1.80-7.70) X 10*3/uL Lymphocytes # 0.83 L (0.90-5.00) X 10*3/uL Eosinophils # 0 L (0.04-0.35) X 10*3/uL Sodium 133 L (135-145) mmol/L Creatinine 0.5 L (0.6-1.5) mg/dL BUN/Creatinine Ratio 34.00 H (12.00-20.00) Ratio Glucose 136 H (70-110) mg/dL Assessment and Plan Assessment: Acute hypoxemic respiratory failure secondary to an acute exacerbation of chronic obstructive pulmonary disease Chronic and ongoing tobacco dependence Marijuana use History of previous MAC infection Anxiety Plan: The patient was seen and evaluated Labs and medications reviewed Continue DuoNeb inhalations, Symbicort Continue Solu-Medrol Doxycycline as empiric antibiotics Xanax for anxiety as needed Lovenox for DVT prophylaxis Protonix for GI prophylaxis This patient was seen independently by the pulmonary nurse practitioner addressing pulmonary issues 50 minutes was spent with this patient including the interview, examination, the review of pertinent labs, imaging, medications along with reviewing other providers notes. The diagnosis, treatment plan and prognosis was discussed with the patient. I also spoke with his nurse involved with his care. Dictation was produced using [employer] software. Please excuse any grammatical, word or spelling errors.
[2025-01-03] MEDS: IPRATROPIUM-ALBUTEROL 3 ML NEB INHALATION PRN (06:14)
[2025-01-03 07:36] LABS: Glucose,Whole Blood 145 mg/dL (70-110)
[2025-01-03] MEDS ORDERED: DEXTROSE 50% SYRINGE 50 ML IVP PRN ×2 (07:42)
[2025-01-03 12:05] LABS: Glucose,Whole Blood 151 mg/dL (70-110)
--- NOTE | 2025-01-03 12:33 | P.PN ---
Subjective Progress Note Date: 01/03/25 59 year old M with PMH of COPD with history of lung CA that has been progressively getting worse over the past 2 days. [facility] He reports cough productive of yellow-brown sputum. He also reports myalgias, chills and positional lightheadedness. Smokes 1/3 pack daily. He denie s any headache, lower extremity edema, nausea or vomiting, fever, chest pain, palpitations, changes in urination or bowel habits. In the ED he underwent extensive evaluation. BP 121/82, HR 101, T 98.3F, RR 21, 95% on RA. 01/02 Patient was seen and examined. Still feeling SOB. 97% on 3L NC. CBC and BMP significant for Na 133, BUN/Cr 34, glu 136. Mag 2.1. COVID, RSV, Flu neg. 01/03 Patient was seen and examined. Slightly improved. 97% on 2L NC. No new labs done today. General: non toxic, no distress, appears at stated age Derm: warm, dry Head: atraumatic, normocephalic, symmetric Eyes: EOMI, no lid lag, anicteric sclera Mouth: no lip lesion, mucus membranes moist Cardiovascular: S1S2 tachy, no murmur Lungs: End expiratory wheezing bilateral, no rhonchi, no rales , no accessory muscle use Ext: no gross muscle atrophy, no edema, no contractures Neuro: no focal neuro deficits Psych: Alert, oriented, appropriate affect Based on my assessment of this patient, this patient meets a high complexity level of care. Acute hypoxic respiratory failure secondary to below Acute COPD exacerbation: Symbicort 2 INH BID. Doxycycline 100 mg PO BID. DuoNeb QID scheduled and PRN SOB/wheezing. SoluMedrol 60 mg IV Q6H. Telemetry monitoring. Supplemental O2 to maintain O2 sat > 92%. Pulmonary on board. Nicotine dependence Patient is pending clinical improvement. Continue above management. Anticipate DC in 1-2 days. CODE STATUS: FULL CODE DVT Prophylaxis: Lovenox SQ GI Prophylaxis: Protonix Designated medical POA if patient is not able to make medical decisions for themselves: . I have reviewed the following advertising consultant notes: I have reviewed the results of the following tests: I have ordered the following tests: I have discussed the care of this patient with the following independent historian: I have independently interpreted the following test below: I have discussed the management of this patient with the following physician: Objective - Vital Signs Vital signs: Vital Signs Temp 97.9 F 01/03/25 12:29 Pulse 99 01/03/25 12:29 Resp 17 01/03/25 12:29 BP 121/76 01/03/25 12:29 Pulse Ox 97 01/03/25 12:29 FiO2 Intake & Output 01/02/25 01/03/25 01/03/25 18:59 06:59 18:59 Intake Total 1556 540 240 Output Total 300 Balance 1556 240 240 Intake: Oral 1556 540 240 Output: Urine 300 Other: Voiding Method Urinal Urinal # Voids 3 - Labs CBC & Chem 7: 01/02/25 05:06 01/02/25 05:06 Labs: Abnormal Lab Results - Last 24 Hours (Table) 01/03/25 01/03/25 Range/Units 07:35 12:05 POC Glucose (mg/dL) 145 H 151 H (70-110) mg/dL
[2025-01-03] MEDS: INSULIN ASPART (NovoLOG) 100 UNIT/ML VIAL SQ SCH (12:53)
--- NOTE | 2025-01-03 13:34 | P.PN ---
Subjective Progress Note Date: 01/03/25 This is an anxious 59-year-old male patient with a known history of severe chronic obstructive pulmonary disease, chronic and ongoing tobacco dependence, marijuana use, previous MAC infection. He presented here to the emergency room early this morning as a transfer for an outside hospital with complaints of increasing shortness of breath, cough and congestion. He had been sick for 2 to 3 days prior. No fever or chills. No productive cough. No sick contacts. Chest x-ray revealed no acute pulmonary process. There is evidence of significant COPD. No labs done here yet. He is seen today in consultation on the regular medical floor. He is sitting up in bed. He is anxious. He is alert and oriented. He is maintaining O2 saturations in the 90s on 3 L/min per nasal cannula. He is afebrile. Hemodynamically stable. The patient is seen today January 02, 2025 in follow-up on the regular medical floor. He is currently sitting up at the bedside. Awake and alert in no acute distress. Less anxious today compared to yesterday. He is maintaining good O2 saturations in the 90s on 2 L/min per nasal cannula. White count 9.9. Hemoglobin 13.8. Platelets 315. Sodium 133. Potassium 4.6. Bicarb 27. BUN 17. Creatinine 0.5. Glucose 136. He is continued on DuoNeb inhalations, Symbicort, Solu-Medrol. Lovenox for DVT prophylaxis. Empiric antibiotics in the form of Vibramycin. Xanax as needed for anxiety. Protonix for GI prophylaxis. The patient is seen today January 03, 2025 in follow-up on the regular medical floor. He is awake and alert in no acute distress. Sitting up in bed. Comfortable. Breathing easier today compared to yesterday. Maintaining good O2 saturations in the 90s on 2 L/min per nasal cannula. No IV fluids. Tolerating a diet. Continued on DuoNeb and elations, Symbicort, Solu-Medrol. Empiric antibiotics in the form of doxycycline. Lovenox for DVT prophylaxis. Protonix for GI prophylaxis. Glucose 151. Viral screen was negative. Objective - Vital Signs Vital signs: Vital Signs Temp 97.9 F 01/03/25 12:29 Pulse 99 01/03/25 12:29 Resp 17 01/03/25 12:29 BP 121/76 01/03/25 12:29 Pulse Ox 97 01/03/25 12:29 FiO2 Intake & Output 01/02/25 01/03/25 01/03/25 18:59 06:59 18:59 Intake Total 3101 551 6216 Output Total 300 Balance 5012 351 8053 Intake: Oral 3392 241 1911 Output: Urine 300 Other: Voiding Method Urinal Urinal # Voids 3 5 # Bowel Movements 1 - Exam GENERAL EXAM: Alert, calm, cooperative 59-year-old male, on 2 L nasal cannula, comfortable in no apparent distress. HEAD: Normocephalic. EYES: Normal reaction of pupils, equal size. NOSE: Clear with pink turbinates. THROAT: No erythema or exudates. NECK: No masses, no JVD. CHEST: No chest wall deformity. LUNGS: Equal air entry with bilateral end expiratory wheeze, diminished. CVS: S1 and S2 normal with no audible murmur, regular rhythm. ABDOMEN: No hepatosplenomegaly, normal bowel sounds, no guarding or rigidity. SPINE: No scoliosis or deformity SKIN: No rashes CENTRAL NERVOUS SYSTEM: No focal deficits, tone is normal in all 4 extremities. EXTREMITIES: There is no peripheral edema. No clubbing, no cyanosis. Peripheral pulses are intact. - Labs CBC & Chem 7: 01/02/25 05:06 01/02/25 05:06 Labs: Abnormal Lab Results - Last 24 Hours (Table) 01/03/25 01/03/25 Range/Units 07:35 12:05 POC Glucose (mg/dL) 145 H 151 H (70-110) mg/dL Assessment and Plan Assessment: Acute hypoxemic respiratory failure secondary to an acute exacerbation of chronic obstructive pulmonary disease Chronic and ongoing tobacco dependence Marijuana use History of previous MAC infection Anxiety Plan: The patient was seen and evaluated Labs and medications reviewed Continue with bronchodilators and steroids Continue empiric antibiotics Lovenox for DVT prophylaxis Protonix for GI prophylaxis Probable discharge in the a.m. This patient was seen independently by the pulmonary nurse practitioner addressing pulmonary issues 50 minutes was spent with this patient including the interview, examination, the review of pertinent labs, imaging, medications along with reviewing other providers notes. The diagnosis, treatment plan and prognosis was discussed with the patient. I also spoke with his nurse involved with his care. Dictation was produced using [employer] dictation software. Please excuse any grammatical, word or spelling errors.
[2025-01-03 17:02] LABS: Glucose,Whole Blood 134 mg/dL (70-110)
[2025-01-03 20:06] LABS: Glucose,Whole Blood 142 mg/dL (70-110)
[2025-01-04 07:26] LABS: Glucose,Whole Blood 190 mg/dL (70-110)
[2025-01-04 08:08] VITALS: RESP 18
[2025-01-04] MEDS: predniSONE 20 MG TAB PO SCH (10:06)
[2025-01-04 11:18] VITALS: BP 118/74; TEMP 97.6
[2025-01-04 12:08] LABS: Glucose,Whole Blood 194 mg/dL (70-110)
--- NOTE | 2025-01-04 13:02 | P.PN ---
Subjective Progress Note Date: 01/04/25 This is an anxious 59-year-old male patient with a known history of severe chronic obstructive pulmonary disease, chronic and ongoing tobacco dependence, marijuana use, previous MAC infection. He presented here to the emergency room early this morning as a transfer for an outside hospital with complaints of increasing shortness of breath, cough and congestion. He had been sick for 2 to 3 days prior. No fever or chills. No productive cough. No sick contacts. Chest x-ray revealed no acute pulmonary process. There is evidence of significant COPD. No labs done here yet. He is seen today in consultation on the regular medical floor. He is sitting up in bed. He is anxious. He is alert and oriented. He is maintaining O2 saturations in the 90s on 3 L/min per nasal cannula. He is afebrile. Hemodynamically stable. The patient is seen today January 02, 2025 in follow-up on the regular medical floor. He is currently sitting up at the bedside. Awake and alert in no acute distress. Less anxious today compared to yesterday. He is maintaining good O2 saturations in the 90s on 2 L/min per nasal cannula. White count 9.9. Hemoglobin 13.8. Platelets 315. Sodium 133. Potassium 4.6. Bicarb 27. BUN 17. Creatinine 0.5. Glucose 136. He is continued on DuoNeb inhalations, Symbicort, Solu-Medrol. Lovenox for DVT prophylaxis. Empiric antibiotics in the form of Vibramycin. Xanax as needed for anxiety. Protonix for GI prophylaxis. The patient is seen today January 03, 2025 in follow-up on the regular medical floor. He is awake and alert in no acute distress. Sitting up in bed. Comfortable. Breathing easier today compared to yesterday. Maintaining good O2 saturations in the 90s on 2 L/min per nasal cannula. No IV fluids. Tolerating a diet. Continued on DuoNeb and elations, Symbicort, Solu-Medrol. Empiric antibiotics in the form of doxycycline. Lovenox for DVT prophylaxis. Protonix for GI prophylaxis. Glucose 151. Viral screen was negative. The patient is seen today January 04, 2025 in follow-up on the regular medical floor. He is awake and alert in no acute distress. Sitting up in bed having breakfast. Denies any worsening shortness of breath, cough or congestion. He is maintaining good O2 saturations in the 90s on room air. He has been afe brile. Hemodynamically stable. He is continued on DuoNeb inhalations, Symbicort, Solu-Medrol. Lovenox for DVT prophylaxis. Empiric antibiotics in the form of doxycycline. Glucose 194. Objective - Vital Signs Vital signs: Vital Signs Temp 97.6 F 01/04/25 11:17 Pulse 76 01/04/25 11:46 Resp 18 01/04/25 11:17 BP 118/74 01/04/25 11:17 Pulse Ox 97 01/04/25 11:17 FiO2 Intake & Output 01/03/25 01/04/25 01/04/25 18:59 06:59 18:59 Intake Total 1797 240 240 Output Total 300 150 Balance 1797 -60 90 Intake: Oral 1797 240 240 Output: Urine 300 150 Other: Voiding Method Urinal Toilet Urinal # Voids 5 # Bowel Movements 1 - Exam GENERAL EXAM: Alert, very pleasant 59-year-old male, on 2 L nasal cannula, comfortable in no apparent distress. HEAD: Normocephalic. EYES: Normal reaction of pupils, equal size. NOSE: Clear with pink turbinates. THROAT: No erythema or exudates. NECK: No masses, no JVD. CHEST: No chest wall deformity. LUNGS: Equal air entry with bilateral end expiratory wheeze, diminished. CVS: S1 and S2 normal with no audible murmur, regular rhythm. ABDOMEN: No hepatosplenomegaly, normal bowel sounds, no guarding or rigidity. SPINE: No scoliosis or deformity SKIN: No rashes CENTRAL NERVOUS SYSTEM: No focal deficits, tone is normal in all 4 extremities. EXTREMITIES: There is no peripheral edema. No clubbing, no cyanosis. Peripheral pulses are intact. - Labs CBC & Chem 7: 01/02/25 05:06 01/02/25 05:06 Labs: Abnormal Lab Results - Last 24 Hours (Table) 01/03/25 01/03/25 01/04/25 Range/Units 17:01 20:04 07:25 POC Glucose (mg/dL) 134 H 142 H 190 H (70-110) mg/dL 01/04/25 Range/Units 12:07 POC Glucose (mg/dL) 194 H (70-110) mg/dL Assessment and Plan Assessment: Acute hypoxemic respiratory failure secondary to an acute exacerbation of chron ic obstructive pulmonary disease Chronic and ongoing tobacco dependence Marijuana use History of previous MAC infection Anxiety Plan: The patient was seen and evaluated Labs and medications reviewed Stable on 2 L nasal cannula Cleared for discharge Continue his home pulmonary medications, oxygen Complete a prednisone taper Complete a course of antibiotics Again educated regarding smoking cessation Follow-up in our office in 1 week This patient was seen independently by the pulmonary nurse practitioner addressing pulmonary issues 50 minutes was spent with this patient including the interview, examination, the review of pertinent labs, imaging, medications along with reviewing other pr oviders notes. The diagnosis, treatment plan and prognosis was discussed with the patient. I also spoke with his nurse involved with his care. Dictation was produced using [employer] dictation software. Please excuse any grammatical, word or spelling errors.
--- NOTE | 2025-01-04 14:27 | P.DS ---
Providers Date of admission: 01/01/25 06:47 Expected date of discharge: 01/04/25 Attending physician: Ho Barrios MD Consults: 01/01/25 06:37 Consult Physician Routine Consulting Provider: Christopher Sylvester Consult Reason/Comments: COPD exacerbation Do you want consulting provider notified?: Yes Primary care physician: Stated None Hospital Course: 59 year old M with PMH of COPD with history of lung CA that has been progressively getting worse over the past 2 days. He is a transfer from [facility]. He reports cough productive of yellow-brown sputum. He also reports myalgias, chills and positional lightheadedness. Smokes 1/3 pack daily. He denies any headache, lower extremity edema, nausea or vomiting, fever, chest pain, palpitations, changes in urination or bowel habits. In the ED he underwent extensive evaluation. BP 121/82, HR 101, T 98.3F, RR 21, 95% on RA. 01/02 Patient was seen and examined. Still feeling SOB. 97% on 3L NC. CBC and BMP significant for Na 133, BUN/Cr 34, glu 136. Mag 2.1. COVID, RSV, Flu neg. 01/03 Patient was seen and examined. Slightly improved. 97% on 2L NC. No new labs done today. 01/04 Patient was seen and examined. Feeling better. He will need home oxygen. Pulmonary cleared for discharge. Discharge Plan: Plans for discharge on Doxycycline 100 mg PO BID x 4 days (total 7 days), DuoNeb PRN, Prednisone taper, Protonix. Discharge home when able to get home O2 arranged. General: non toxic, no distress, appears at stated age Derm: warm, dry Head: atraumatic, normocephalic, symmetric Eyes: EOMI, no lid lag, anicteric sclera Mouth: no lip lesion, mucus membranes moist Cardiovascular: S1S2 reg, no murmur Lungs: End expiratory wheezing bilateral, no rhonchi, no rales , no accessory muscle use Ext: no gross muscle atrophy, no edema, no contractures Neuro: no focal neuro deficits Psych: Alert, oriented, appropriate affect Discharge Diagnosis: Acute hypoxic respiratory failure secondary to below Acute COPD exacerbation Nicotine dependence This complex discharge took 35 minutes to complete. Patient Condition at Discharge: Stable Plan - Discharge Summary Discharge Rx Participant: No New Discharge Prescriptions: New RX: Doxycycline [Vibramycin] 100 mg PO BID #8 cap RX: Ipratropium-Albuterol Nebulize [Duoneb 0.5 mg-3 mg/3 ml Soln] 3 ml INHALATION RT-Q4H PRN #120 each PRN Reason: Shortness Of Breath Or Wheezing RX: predniSONE See Taper PO DIRECTED #30 tab RX: Pantoprazole [Protonix] 40 mg PO AC-BRKFST #30 tab Continue RX: Aspirin [Adult Low Dose Aspirin EC] 81 mg PO DAILY RX: Albuterol Sulfate [Proair Hfa] 2 puff INHALATION RT-Q4H PRN PRN Reason: Shortness Of Breath RX: Ipratropium-Albuterol Nebulize [Duoneb 0.5 mg-3 mg/3 ml Soln] 3 ml INHALATION RT-QID PRN PRN Reason: Shortness Of Breath RX: predniSONE 5 mg PO DAILY RX: traMADol HCL 50 mg PO Q6H PRN PRN Reason: Pain RX: Fluticasone Propion/Salmeterol [Advair Hfa 230-21 Mcg Inhaler] 2 puff INHALATION RT-BID RX: Cyclobenzaprine [Flexeril] 10 mg PO BID PRN PRN Reason: Muscle Spasm RX: ALPRAZolam [Xanax] 0.5 mg PO BID PRN PRN Reason: Anxiety RX: Hydroxychloroquine Sulfate 200 mg PO DAILY Discharge Medication List RX: Albuterol Sulfate [Proair Hfa] 2 puff INHALATION RT-Q4H PRN 01/31/22 [History] RX: Aspirin [Adult Low Dose Aspirin EC] 81 mg PO DAILY 01/31/22 [History] RX: Ipratropium-Albuterol Nebulize [Duoneb 0.5 mg-3 mg/3 ml Soln] 3 ml IN HALATION RT-QID PRN 01/31/22 [History] RX: predniSONE 5 mg PO DAILY 01/31/22 [History] RX: ALPRAZolam [Xanax] 0.5 mg PO BID PRN 01/01/25 [History] RX: Cyclobenzaprine [Flexeril] 10 mg PO BID PRN 01/01/25 [History] RX: Fluticasone Propion/Salmeterol [Advair Hfa 230-21 Mcg Inhaler] 2 puff INHALATION RT-BID 01/01/25 [History] RX: Hydroxychloroquine Sulfate 200 mg PO DAILY 01/01/25 [History] RX: traMADol HCL 50 mg PO Q6H PRN 01/01/25 [History] RX: Doxycycline [Vibramycin] 100 mg PO BID #8 cap 01/04/25 [Rx] RX: Ipratropium-Albuterol Nebulize [Duoneb 0.5 mg-3 mg/3 ml Soln] 3 ml INHALATION RT-Q4H PRN #120 each 01/04/25 [Rx] RX: Pantoprazole [Protonix] 40 mg PO AC-BRKFST #30 tab 01/04/25 [Rx] RX: predniSONE See Taper PO DIRECTED #30 tab 01/04/25 [Rx] Follow up Appointment(s)/Referral(s): Charlie Logan DO [Doctor of Osteopathic Medicine] - 01/23/25 9:15 am None,Stated [Primary Care Provider] - 1-2 days Discharge Disposition: HOME SELF-CARE
[2025-01-04 15:37] VITALS: PULSE 74
== END 2025-01-04 16:19 | disposition home or self-care (01) ==
LOC: EC 05:38 → INTOOBSV 06:47 → 5NMEDONC 06:47 → 6NMEDSUR 01-03 23:32 → 5NMEDONC 01-03 23:36 → UNDODISIN 01-04 16:19
PROVIDERS: ADMIT Internal Medicine; ATTEND Internal Medicine
DX: J44.1 Chronic obstructive pulmonary disease with (acute) exacerbation (principal); J96.01 Acute respiratory failure with hypoxia; M79.10 Myalgia, unspecified site; F17.210 Nicotine dependence, cigarettes, uncomplicated; F41.9 Anxiety disorder, unspecified; Z79.82 Long term (current) use of aspirin; Z79.899 Other long term (current) drug therapy; Z85.118 Personal history of other malignant neoplasm of bronchus and lung; Z87.01 Personal history of pneumonia (recurrent); Z20.822 Contact with and (suspected) exposure to COVID-19; Z86.19 Personal history of other infectious and parasitic diseases; Z79.51 Long term (current) use of inhaled steroids
CPT/HCPCS: 96376 ×4; 96372 ×4; 96375; 96374; 99285; 94640 ×8; 94760 ×2; 93005; 80048; 83735; 85025; 83036; 87636; 71046; G0378 ×4; J2060; J1650 ×4; J7512; J2919 ×4